=== PATIENT | female | born 1945 | race Caucasian/White ===

== ENCOUNTER 2024-06-04 10:45 | Emergency (ER) | payer MEDICARE ==
[2024-06-04] VITALS (23 sets, daily range): BP systolic 111–138; BP diastolic 72–106
[~2024-06-04] VITALS: Ht 157.5 cm; Wt 62.7 kg
[2024-06-04] MEDS ORDERED: METOPROLOL TARTRATE 5 MG/5 ML VIAL IV ONE (11:25)
[2024-06-04] MEDS ORDERED: SODIUM CHLORIDE 0.9% 1,000 ML IV SCH (11:25)
[2024-06-04 11:37] LABS: BASO% 1.7 % (0-3); EOS% 1.2 % (0-8); HEMATOCRIT 48.5 % (37.0-47.0); HEMOGLOBIN 15.7 g/dl (12.0-16.0); IMMATURE GRANULOCYTES 0.1 % (0.0-5.0); LYMPH% 13.8 % (15-41); MEAN CELL VOLUME 84.2 fL CALC (80.0-100.0); MEAN CORPUSCULAR HGB 27.3 pG CALC (26.0-32.0); MEAN CORPUSCULAR HGB CONC 32.4 g/dL CAL (32.0-36.0); MONO% 10.7 % (2-13); NEUT# 5.56 thou/uL (2.00-7.15); NEUT% 72.5 % (42-76); RED BLOOD COUNT 5.76 mill/uL (4.20-5.60); RED CELL DISTRI WIDTH 13.3 % (11.5-15.5)
[2024-06-04 11:59] LABS: ALBUMIN 4.1 g/dL (3.2-5.0); ALKALINE PHOSPHATASE 79 u/l (38-126); ANION GAP 11 (6-22 (CALC)); BILIRUBIN, TOTAL 1.3 mg/dL (0.02-1.3); BUN 22 mg/dL (8-23); BUN/CREATININE RATIO 25 (12-20 (CALC)); CARBON DIOXIDE 29 mmol/l (22-30); CHLORIDE 100 mmol/l (95-108); CREATININE 0.9 mg/dL (0.5-1.0); ESTIMATED GFR 65 ML/MIN (>=90 (CALC)); POTASSIUM 4.1 mmol/l (3.5-5.1); SGOT/AST 72 u/l (9-36); SODIUM 136 mmol/l (137-146); TOTAL PROTEIN 6.9 g/dL (6.3-8.2)
[2024-06-04 12:01] LABS: D-DIMER 0.76 mg/L (0.19-0.60)
[2024-06-04 12:05] LABS: PROTHROMBIN TIME 10.9 SECONDS (9.0-12.5)
[2024-06-04] MEDS ORDERED: HYZAAR1 TA2 PO (12:09)
[2024-06-04] MEDS ORDERED: TOPROL XL50 MG PO (12:10)
[2024-06-04] MEDS ORDERED: ALPRAZOLAM0.25 MG PO (12:11)
[2024-06-04] MEDS ORDERED: SYNTHROID25 MCG PO (12:13)
[2024-06-04] MEDS ORDERED: TRELEGY ELLIPTA1 AER IN (12:14)
[2024-06-04] MEDS ORDERED: VENTOLIN HFA108 MCG IN (12:15)
[2024-06-04 12:21] LABS: URINE BILIRUBIN - DIPSTICK Negative (NEGATIVE); URINE BLOOD DIPSTICK Negative (NEGATIVE); URINE GLUCOSE - DIPSTICK Negative (NEGATIVE); URINE KETONE Negative (NEGATIVE); URINE NITRITE - DIPSTICK Negative (Negative); URINE PROTEIN - DIPSTICK 30 mg/dL (NEG-TRACE); URINE SPECIFIC GRAVITY 1.015; URINE UROBILINOGEN - DIPSTICK 0.2 E.U./dL (0.2)
[2024-06-04 12:41] LABS: URINE COLOR Yellow; URINE LEUK ESTERASE Small (NEGATIVE)
[2024-06-04 12:44] LABS: URINE EPITHELIAL CELLS FEW EPI/hpf (0-FEW); URINE WBC 0-2 WBC/hpf (0-5)
[2024-06-04] MEDS ORDERED: ELIQUIS5 MG PO (14:19)
[2024-06-04] MEDS ORDERED: KAPSPARGO SPRIN50 MG PO (14:20)
== END 2024-06-04 14:33 | disposition home or self-care (01) ==
LOC: ED 10:45
PROVIDERS: Family Medicine
DX: I48.91 Unspecified atrial fibrillation (principal); I10 Essential (primary) hypertension; J44.9 Chronic obstructive pulmonary disease, unspecified; F41.9 Anxiety disorder, unspecified; R06.02 Shortness of breath